=== PATIENT | female | born 1995 | race African-American/Black ===

== ENCOUNTER 2022-12-16 11:53 | Emergency (ER) | payer OTHER, SELFPAY ==
--- NOTE | 2022-12-16 12:07 | ED.DENTAL ---
HPI - Dental/Oral General Chief complaint: Dental/Oral Stated complaint: Dental Pain/Fatique/Weakness Time Seen by Provider: 12/16/22 12:07 Source: patient, RN notes reviewed and old records reviewed Mode of arrival: ambulatory Limitations: no limitations History of Present Illness HPI Narrative: 27-year-old female presents to the [facility] with multiple complaints. Patient states that she was at work , asked when launch was because she was hangry and was told to go get evaluated for diabetes. patient denies any dizziness, abdominal pain or chest pain. Denies any frequent urination. No family history of diabetes. Patient is also complaining of right upper and lower dental pain. Poor dentition noted. Swelling and decayed to noted to the right lower molars. Related Data Home Medications Medication Instructions Recorded Confirmed alprazolam 1 mg tablet mg 12/16/22 Allergies Allergy/AdvReac Type Severity Reaction Status Date / Time Penicillins Allergy Unknown Unknown Verified 12/16/22 12:08 Review of Systems Review of Systems: All systems reviewed & are unremarkable except as noted in HPI and below Constitutional: Constitutional: Reports no additional constitutional complaints Eyes: Eyes: Reports no additional eye complaints ENT: Reports as per HPI and Reports dental pain Cardiovascular: Cardiovascular: Reports no additional cardiovascular complaints, Denies chest pain and Denies dyspnea Respiratory: Respiratory: Reports no additional respiratory complaints, Denies chest congestion, Denies cough and Denies dyspnea Gastrointestinal: Gastrointestinal: Reports no additional gastrointestinal complaints, Denies abdominal pain, Denies nausea and Denies vomiting Musculoskeletal: Musculoskeletal: Reports no additional musculoskeletal complaints Integumentary/Breasts: Skin/Breast: Reports system reviewed and no additional complaints, except as docu Neurologic: Reports system reviewed and no additional complaints, except as documented Psychiatric: Psychiatric: Reports no additional psychiatric complaints Allergic/Immunologic: Allergic/Immunologic: Reports no additional allergic/immunologic complaints [facility] Past Medical History Medical History (Updated 12/17/22 @ 09:28 by María Echevarria APRN) Anxiety Social History Social History Alcohol intake: never Comments At the time of my signature, I reviewed and agree with the nursing past medical, surgical, social, and family history. There is no relevant family history pertinent to the patient complaint. Exam Const: General: cooperative, healthy appearing, comfortable, no acute distress, well developed, alert, anxious and well nourished Nutritional Appearance: well nourished Orientation/consciousness: patient oriented x3 Limitations: no limitations HENMT: Head: normal to inspection Ears: hearing grossly normal bilaterally and external ears normal Face/Nose/Sinus: Normal external nose present, Normal nares present, Normal nasal mucous membranes and turbinates present and normal facial exam Face and sinus: normal facial exam Mouth: Yes Normal oral and palatal mucosa present, Yes lip normal and Yes moist mucous membranes Teeth and gingiva: abnormal tooth and associated gingiva ( right lower molars, decayed, surrounding erythema and swelling), caries and fair dentition Throat: posterior oropharynx normal and uvula midline Eyes: General: appearance normal, both eyes and all related structures Alignment and Position: alignment normal Periorbital: periorbital findings normal Conjunctivae: conjunctivae normal Pupils: Equal, round and reactive pupils present EOM: EOMs intact bilaterally Neck: Neck: normal visual inspection, full ROM, no lymphadenopathy and no meningeal signs Chest: Chest palpation & inspection: normal inspection of the chest Resp: Effort & Inspection: normal respiratory effort and
[2022-12-16 12:08] VITALS: BP 149/90; PULSE 83; RESP 14; TEMP 36.7; O2SAT 100
== END 2022-12-16 12:30 | disposition home or self-care (01) ==
PROVIDERS: Emergency Provider Nurse Practitioner
DX: K02.9 Dental caries, unspecified (principal); F41.9 Anxiety disorder, unspecified
CPT/HCPCS: 99213; G0463

== ENCOUNTER 2023-02-08 20:21 | Emergency (ER) | payer OTHER, SELFPAY ==
[2023-02-08 20:40] VITALS: BP 151/104; PULSE 92; RESP 20; TEMP 36.5; O2SAT 100
--- NOTE | 2023-02-08 20:56 | PC.NURSE ---
Patient states you cannot touch my arms, I will not get an IV. Patient states she will not tell us why. Patient is not wanting to answer questions. Patient has bilateral wounds on both arms.
--- NOTE | 2023-02-08 20:56 | PC.NURSE ---
Pt called for blood draw. Pt noted to have wounds covered with coban to bilateral lower arms. Unable to obtain blood work at this time. This RN asked pt what the wounds were from and pt stated Im not going to answer that here . Pt does admit to past drug use.
[2023-02-08 21:24] LABS: Appearance Urine Cloudy (Clear); Bacteria Urine None Seen /hpf; Bilirubin Urine 1+ (Negative); Blood Urine Negative (Negative); Color Urine Dark Yellow (Yellow); Glucose Urine UA Negative (Negative); Ketones Urine Trace mg/dL (Negative); Leukocyte Esterase Ur Negative LEU/UL (Negative); Nitrate Urine Negative (Negative); Non Pathogenic Casts 0-2; Protein Urine Trace mg/dL (Negative); RBC Urine 0-2 /hpf (0-2); Specific Grav Ur 1.018 (1.001-1.035); Squamous Epithelial Cell Urine Few /hpf (Few); Urobilinogen Urine 0.2 mg/dL (<2.0); WBC Urine 0-5 /hpf; pH Urine 5.5 (5.0-9.0)
[2023-02-08 21:28] LABS: Add Urine Microscopic? YES
== END 2023-02-09 01:30 | disposition left against medical advice (07) ==
PROVIDERS: Emergency Provider Emergency Medicine; PCP Family Medicine
DX: R10.9 Unspecified abdominal pain (principal)
CPT/HCPCS: 81001; 99199

== ENCOUNTER 2023-05-18 19:03 | Emergency (ER) | payer OTHER, SELFPAY ==
[2023-05-18 19:09] VITALS: BP 130/76; PULSE 111; RESP 18; TEMP 36.2; O2SAT 100
--- NOTE | 2023-05-18 19:22 | PC.NURSE ---
RN attempted to draw blood on pt. pt. unwilling.
--- NOTE | 2023-05-18 19:36 | ED.PSYCH ---
HPI - Psych General Chief Complaint: Psychiatric Symptoms <Levi Wilkerson DO - Last Filed: 05/19/23 08:27> Stated Complaint: HALLUCINATING, UNCOOPERATIVE <Levi Wilkerson DO - Last Filed: 05/19/23 08:27> Time Seen by Provider: 05/18/23 19:27 <Levi Wilkerson DO - Last Filed: 05/19/23 08:27> Source: patient and EMS <DO Katrin Rdz Last Filed: 05/19/23 08:27> Limitations: no limitations <Levi Wilkerson DO - Last Filed: 05/19/23 08:27> History of Present Illness HPI Narrative: Patient is a 28-year-old female present to the emergency department via EMS from a local hotel for bizarre behavior. EMS states that the patient was yelling at people that were not there and talking nonsensical. Patient was refusing care from EMS. Patient states that she does not want to be here right now and has no current complaints. Patient denies homicidal or suicidal ideations. Patient admits to history of anxiety and notes that her physician is through [facility] but will not provide the name. Patient is refusing to answer many questions and overall history is limited. Patient denies dysuria, cough, fever, recent injuries, recent illness, diarrhea, vomiting, headache, vision changes, sore throat, rash. When asked about the shi on her arms patient says is not a my business and refuses to allow me to evaluate them. Patient denies alcohol or illicit drug use. Patient denies auditory or visual hallucinations. Patient says she been taking her medications as prescribed without any recent changes but is unsure as to what medication she takes on a regular basis. Patient is unsure where she lives or who she lives with. Patient states that the year is 2024. Patient admits to history of bipolar, denies history of schizophrenia. <DO Katrin Rdz Last Filed: 05/19/23 08:27> Related Data Home Medications: Home Medications Medication Instructions Recorded Confirmed alprazolam 1 mg tablet (Xanax) 1 mg PO TID PRN 02/01/23 amoxicillin 875 mg-potassium 1 tablet PO Q12H 02/01/23 clavulanate 125 mg tablet pregabalin 75 mg capsule (Lyrica) 75 mg PO BID 03/18/23 <Levi Wilkerson DO - Last Filed: 05/19/23 08:27> Allergies/Adverse Reactions: Allergies Allergy/AdvReac Type Severity Reaction Status Date / Time Penicillins Allergy Unknown Unknown Verified 03/18/23 15:14 <Levi Wilkerson DO - Last Filed: 05/19/23 08:27> Review of Systems Review of Systems: A 10 system review of systems was completed on the patient and is negative except for what is stated in the HPI. Nursing and ancillary documentation was reviewed. <Levi Wilkerson DO - Last Filed: 05/19/23 08:27> [facility] Past Medical History Medical History: Medical History Anxiety <Levi Wilkerson DO - Last Filed: 05/19/23 08:27> Family History Family History: Family History Father Hypertension Depression Mother Hypertension Depression <Levi Wilkerson DO - Last Filed: 05/19/23 08:27> Social History Social History: Social History Smoking status: Never smoker Tobacco type: cigarettes Alcohol intake: never Substance use: former Substance use type: does not use Lack of Transportation: No Lack of Food: Never True Current Housing: I Have Housing Concerned About Future Housing: No Difficulty Paying Gas/Electric Bills: Decline to Answer Difficulty Paying for Meds: YES Currently Unemployed: No Education: Decline to Answer Difficulty w/ Childcare or Family Care: No <Levi Wilkerson DO - Last Filed: 05/19/23 08:27> Comments At time of signature, I have reviewed and agree with nursing past medical, surgical, social and family history unless otherwise noted. Please see the nursing chart f
[2023-05-18] MEDS: HALOPERIDOL LACTATE 5 MG/ML VIAL IM (19:40)
[2023-05-18] MEDS: LORazepam INJ (*CRX) 2 MG/ML VIAL IM (19:40)
[2023-05-18 22:45] LABS: Basophils Absolute Auto 0.1 K/mm3 (0.0-0.1); Basophils Percent Auto 0.6 % (0.2-1.2); Eosinophils Percent Auto 0.2 % (0-4.4); Hematocrit 36.6 % (37.0-47.0); Hemoglobin 11.9 g/dL (12.0-15.0); Immature Granulocyte Absolute 0.03 K/mm3 (0.00-0.031); Immature Granulocyte Percent A 0.3 % (0-0.5); Immature Platelet Fraction Pct 5.2 % (0.9-11.2); Lymphocytes Absolute Auto 2.65 K/mm3 (0.9-3.2); Lymphocytes Percent Auto 26.7 % (18.3-44.2); Mean Corpuscular HGB Conc 32.5 g/dl (32-36); Mean Corpuscular Hemoglobin 27.8 pg (26-34); Mean Corpuscular Volume 85.5 fl (80-100); Mean Platelet Volume 10.8 fl (7.4-10.4); Monocytes Absolute Auto 0.7 K/mm3 (0.1-0.6); Monocytes Percent Auto 6.7 % (2.6-8.5); Neutrophils Absolute Auto 6.5 K/mm3 (1.3-6.7); Neutrophils Percent Auto 65.5 % (45.5-73.1); Platelet Count Result 294 k/mm3 (150-375); Red Blood Count 4.28 M/mm3 (4.2-5.4); Red Cell Distribution Width 14.9 % (11.5-14.5); White Blood Count 9.9 K/mm3 (4.5-10.0)
[2023-05-18 22:50] LABS: Appearance Urine Cloudy (Clear); Bacteria Urine 2+ /hpf; Bilirubin Urine Negative (Negative); Blood Urine Negative (Negative); Color Urine Dark Yellow (Yellow); Glucose Urine UA Negative (Negative); Ketones Urine Trace mg/dL (Negative); Leukocyte Esterase Ur Negative LEU/UL (Negative); Nitrate Urine Negative (Negative); Non Pathogenic Casts 0-2; Protein Urine Trace mg/dL (Negative); RBC Urine 0-2 /hpf (0-2); Specific Grav Ur 1.019 (1.001-1.035); Squamous Epithelial Cell Urine Many /hpf (Few); pH Urine 6.5 (5.0-9.0)
[2023-05-18 22:54] LABS: Acetaminophen < 10 ug/mL (10-30); Ethanol < 10 mg/dL (<10); Salicylate < 1.0 mg/dL (2-20)
[2023-05-18 23:02] LABS: Add Urine Microscopic? YES; Barbiturate Screen Urine Negative (Negative); Benzodiazepines Screen Urine Positive (Negative)
[2023-05-18 23:18] LABS: Influenza A QL RT-PCR Negative (Negative); Influenza B QL RT-PCR Negative (Negative); RSV RNA, RT-PCR Negative (Negative); SARS-CoV-2 RNA PCR Negative (Negative)
[2023-05-18 23:37] LABS: Cannabinoid Screen Urine Positive (Negative); Cocaine Screen Urine Negative (Negative); Methadone Screen Urine Negative (Negative); Opiate Screen Urine Negative (Negative); Phencyclidine Screen Urine Negative (Negative)
[2023-05-18 23:38] LABS: Alanine Aminotransferase 17 U/L (6-35); Albumin Level 4.6 g/dL (3.5-5.1); Alkaline Phosphatase 84 U/L (38-126); Anion Gap 11 mmol/L (8-16); Aspartate Amino Transferase 27 U/L (14-36); Bilirubin,Total 0.9 mg/dL (0.2-1.3); Blood Urea Nitrogen 13 mg/dL (7-17); Calcium 9.9 mg/dL (8.4-10.2); Carbon Dioxide 24 mmol/L (22-30); Chloride 100 mmol/L (98-107); Estimated CRCL calculation 119 ml/min; Estimated Glomerular Filt Rate > 60; Glucose 93 mg/dL (65-110); Potassium 3.9 mmol/L (3.4-5.0); Sodium 135 mmol/L (137-145)
[2023-05-19 00:03] LABS: Amphetamine Screen Urine Positive (Negative)
--- NOTE | 2023-05-19 00:03 | PC.NURSE ---
[facility] contacted for evaluation of patient.
[2023-05-19 00:09] LABS: Thyroid Stimulating Hormone 0.827 uIU/mL (0.465-4.680)
--- NOTE | 2023-05-19 08:52 | ECG_ITS ---
Measurements Intervals [place] Rate: 104 P: 78 KS: 121 QRS: 72 QRSD: 78 T: 267 QT: 305 QTc: 403 Interpretive Statements SINUS TACHYCARDIA POSSIBLE LEFT ATRIAL ENLARGEMENT BORDERLINE T WAVE ABNORMALITY- DIFFUSE LEADS BASELINE ARTIFACT- I, II, III, AVR, AVL, AVF, V1-V6 BORDERLINE ECG NO PREVIOUS ECG AVAILABLE FOR COMPARISON Electronically Signed On 05-19-2023 9:33:50 CDT by Edward Rincon D.O.
== END 2023-05-19 08:55 ==
PROVIDERS: Student in an Organized Health Care Education/Training Program; Emergency Provider Emergency Medicine; PCP Family Medicine
DX: F12.90 Cannabis use, unspecified, uncomplicated (principal); F15.90 Other stimulant use, unspecified, uncomplicated; F13.90 Sedative, hypnotic, or anxiolytic use, unspecified, uncomplicated; Z20.822 Contact with and (suspected) exposure to COVID-19; F31.9 Bipolar disorder, unspecified; F20.9 Schizophrenia, unspecified; F41.9 Anxiety disorder, unspecified; R00.0 Tachycardia, unspecified; R94.31 Abnormal electrocardiogram [ECG] [EKG]
CPT/HCPCS: 36415; 80053; 80307; 81001; 81025; 84443; 85025; 85055; 87086; 87088; 87637; 93005; 96372; 99285; J1630; J2060

== ENCOUNTER 2024-04-26 16:12 | Emergency (ER) | payer OTHER, SELFPAY ==
[2024-04-26 16:24] VITALS: BP 145/109; PULSE 103; RESP 15; TEMP 36.4; O2SAT 100
--- NOTE | 2024-04-26 17:13 | ED.ABDPAIN ---
HPI - Abdominal Pain General Chief Complaint: Urogenital-Female Stated Complaint: vaginal cyst Time Seen by Provider: 04/26/24 17:13 Source: patient, RN notes reviewed and old records reviewed Mode of arrival: ambulatory Limitations: no limitations History of Present Illness HPI narrative: Patient presents with complaints of abscess on my vagina?. She will not sure how long this has been a problem. She reports that it is a recurrent problem. She is difficult to elicit information from. Becomes defensive and gives one-word answers to most questions Related Data Home Medications Medication Instructions Recorded Confirmed alprazolam 1 mg tablet (Xanax) 1 mg PO TID PRN Anxiety 02/01/23 04/26/24 Allergies Allergy/AdvReac Type Severity Reaction Status Date / Time Penicillins Allergy Unknown Unknown Verified 04/26/24 16:16 Review of Systems Review of Systems: All systems reviewed & are unremarkable except as noted in HPI and below Constitutional: Constitutional: Reports no additional constitutional complaints ENT: Reports system reviewed and no additional complaints, except as documented Cardiovascular: Cardiovascular: Reports no additional cardiovascular complaints Respiratory: Respiratory: Reports no additional respiratory complaints Gastrointestinal: Gastrointestinal: Reports no additional gastrointestinal complaints Genitourinary: Genitourinary: Reports no additional female genitourinary complaints and Reports as per HPI [facility] Past Medical History Medical History Anxiety Family History Family History Father Hypertension Depression Mother Hypertension Depression Social History Social History Smoking status: Never smoker Tobacco type: cigarettes Alcohol intake: never Substance use: former Substance use type: does not use Lack of Transportation: No Lack of Food: Never True Current Housing: I Have Housing Concerned About Future Housing: No Difficulty Paying Gas/Electric Bills: Decline to Answer Difficulty Paying for Meds: YES Currently Unemployed: No Education: Decline to Answer Difficulty w/ Childcare or Family Care: No Exam Const: General: cooperative, no acute distress, alert and awake Orientation/consciousness: oriented to person, oriented to place and oriented to time HENMT: Head: normal to inspection Resp: Effort & Inspection: normal respiratory effort and able to speak in complete sentences Auscultation: clear to auscultation bilaterally, no crackles, no rales, no rhonchi and no wheezes Cardio: Palpation: normal PMI Rate: regular rate Rhythm: regular rhythm Heart sounds: S1 normal heart sound present and S2 normal heart sound present : External Female Exam: lesion (Extremely large lesion to right labia majora, 2 smaller lesions to thigh) Neuro: General: oriented to person, oriented to place and oriented to time Cranial nerves: Yes CN's II-XII intact bilaterally Psych: Appearance: grossly normal Thought process: Normal thought process present Insight: Good insight present (Psych) Judgement: Good judgement present (Psych) Course Course Level of Care: Express Care Visit Vital Signs Vital signs: Vital Signs Temperature 97.5 F L 04/26/24 16:24 Pulse Rate 103 H 04/26/24 16:24 Respiratory Rate 15 04/26/24 16:24 Blood Pressure 145/109 H 04/26/24 16:24 Pulse Oximetry 100 04/26/24 16:24 Oxygen Delivery Room Air 04/26/24 16:24 Temperature 97.5 F L 04/26/24 16:24 Pulse Rate 103 H 04/26/24 16:24 Respiratory Rate 15 04/26/24 16:24 Blood Pressure 145/109 H 04/26/24 16:24 Pulse Oximetry 100 04/26/24 16:24 Oxygen Delivery Room Air 04/26/24 16:24 MDM - Abdominal Pain MDM Narrative Medical decision making narrative: Patient was strongly adv
== END 2024-04-26 17:39 | disposition home or self-care (01) ==
PROVIDERS: Emergency Provider Nurse Practitioner Family; PCP Family Medicine
DX: N76.4 Abscess of vulva (principal); F41.9 Anxiety disorder, unspecified
CPT/HCPCS: 99213; G0463